=== PATIENT | male | born 1995 | race Two or more races ===

== ENCOUNTER 2017-11-02 18:46 | Emergency (ER) | payer SELFPAY ==
[2017-11-02 18:50] VITALS: TEMP 98.3
[2017-11-02 19:45] VITALS: BP 142/95; PULSE 82; RESP 18; O2SAT 95
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
== END 2017-11-03 02:58 ==
LOC: H.ER 18:46
DX: F10.129 Alcohol abuse with intoxication, unspecified (principal); S09.90XA Unspecified injury of head, initial encounter; S09.93XA Unspecified injury of face, initial encounter; Y04.0XXA Assault by unarmed brawl or fight, initial encounter; Y92.89 Other specified places as the place of occurrence of the external cause; J45.909 Unspecified asthma, uncomplicated
CPT/HCPCS: 70450; 70486; 82948; 96372; 99283; G0480; J1630; J2060